=== PATIENT | female | born 1955 | race Caucasian/White ===

== ENCOUNTER → 2016-07-19 | Outpatient (CLI) | payer BC ==
[~2016-07-19] MED LIST: ALBUAER19 INH; IBUP-1277 PO; METR0.7536 TOP; NITR-5 PO; SULF47LI TOP
[2016-07-19 12:28] LABS: URINE APPEARANCE CLEAR (CLEAR); URINE BILIRUBIN NEG (NEG); URINE COLOR YELLOW; URINE EPITHELIAL CELL AUTO 20-30 /lpf (0-5); URINE NITRITE NEG (NEG); URINE SPECIFIC GRAVITY 1.009 (1.000-1.030); UROBILINOGEN NEG (NEG)
[2016-07-19 12:42] LABS: MANUAL MICROSCOPIC REQUIRED? NO; REVIEW REQ? YES
== END | disposition home or self-care (01) ==
LOC: C.LABBFT 08:54
PROVIDERS: ATTEND Internal Medicine
DX: N39.0 Urinary tract infection, site not specified (principal)

== ENCOUNTER → 2016-12-04 | Outpatient (CLI) | payer BC ==
--- NOTE | 2016-12-05 07:39 | MAMMOGRAPHY REPORT ---
BILATERAL DIGITAL SCREENING MAMMOGRAM TOMOSYNTHESIS WITH CAD: 12/04/2016 CLINICAL HISTORY: Routine screening. Patient has no complaints. TECHNIQUE: Breast tomosynthesis in addition to standard 2D mammography was performed. Current study was also evaluated with a Computer Aided Detection (CAD) system. COMPARISON: Comparison is made to exams dated: 11/18/2015 mammogram, 11/16/2014 mammogram, 11/13/2013 m ammogram, 11/12/2012 mammogram, 11/12/2011 mammogram, and 11/08/2010 mammogram - [facility] enter. BREAST COMPOSITION: There are scattered areas of fibroglandular density in both breasts. FINDINGS: There is stable asymmetry in the anterior left breast. No new suspicious mass, architectu ral distortion or cluster of microcalcifications is seen. IMPRESSION: ACR BI-RADS CATEGORY 1: NEGATIVE There is no mammographic evidence of malignancy. A 1 year screening mammogram is recommended. The pa tient will receive written notification of the results. Approximately 10% of breast cancers are not detected with mammography. A negative mammographic report should not delay biopsy if a clinically suggestive mass is present. Elle Smart M.D. ay/:12/04/2016 16:50:56 Exhauster Engineer: Rosa Isela PARSONS(Víctor)(M), [facility] letter sent: Normal 1/2 BI-RADS Code: ACR BI-RADS Category 1: Negative
== END | disposition home or self-care (01) ==
LOC: C.MAMM 15:35
PROVIDERS: ATTEND Obstetrics & Gynecology
DX: Z12.31 Encounter for screening mammogram for malignant neoplasm of breast (principal)

== ENCOUNTER → 2016-12-20 | Outpatient (CLI) | payer BC ==
--- NOTE | 2016-12-20 14:23 | DIAGNOSTIC IMAGING REPORT ---
LEFT KNEE 3 VIEWS CLINICAL HISTORY: Left knee pain. FINDINGS: AP, crosstable lateral, and sunrise views of left knee are compared to study dated 01/30/2013. The skeletal structures are osteopenic. No fracture is seen. There is minimal joint space narrowing seen at the patellofemoral articulation. No joint effusion is identified. The overlying soft tissues are within normal limits. IMPRESSION: No acute bony abnormality is seen in the left knee. Electronically signed by: Matt Saha M.D. 12/20/2016 2:22 PM Dictated Date/Time: 12/20/2016 2:21 PM
== END | disposition home or self-care (01) ==
LOC: C.RAD1850 13:33
PROVIDERS: ATTEND Internal Medicine
DX: M25.562 Pain in left knee (principal)

== ENCOUNTER → 2017-03-18 | Outpatient (CLI) | payer BC | END | disposition home or self-care (01) | LOC: C.PAPS 13:50 | PROVIDERS: ATTEND Obstetrics & Gynecology | DX: Z01.419 Encounter for gynecological examination (general) (routine) without abnormal findings (principal) ==

== ENCOUNTER → 2017-10-08 | Outpatient (CLI) | payer OTHER ==
[2017-10-08 12:50] LABS: BASO % 0.4 %; BASO ABS # 0.02 K/uL (0-0.2); EOS % 3.1 %; EOS ABS # 0.17 K/uL (0-0.5); HEMATOCRIT 37.2 % (37-47); HEMOGLOBIN 12.2 g/dL (12.0-16.0); LYMPH % 36.5 %; LYMPH ABS # 2.03 K/uL (1.2-3.4); MEAN CELL VOLUME 92.8 fL (80-100); MEAN CORPUSCULAR HEMOGLOBIN 30.4 pg (25-34); MEAN CORPUSCULAR HGB CONC 32.8 g/dl (32-36); MEAN PLATELET VOLUME 11.1 fL (7.4-10.4); MONO % 6.8 %; MONO ABS # 0.38 K/uL (0.11-0.59); NEUT % 53.2 %; NEUT ABS # 2.96 K/uL (1.4-6.5); PLATELET COUNT 242 K/uL (130-400); RED CELL DISTRIBUTION WIDTH CV 14.2 % (11.5-14.5); RED CELL DISTRIBUTION WIDTH SD 48.5 fL (36.4-46.3); WHITE BLOOD COUNT 5.56 K/uL (4.8-10.8)
[2017-10-08 15:20] LABS: BLOOD UREA NITROGEN 13 mg/dl (7-18); CALCIUM 8.7 mg/dl (8.5-10.1); CARBON DIOXIDE 30 mmol/L (21-32); CHOLESTEROL 167 mg/dl (0-200); CREATININE 0.68 mg/dl (0.60-1.20); GLUCOSE 87 mg/dl (70-99); POTASSIUM 4.2 mmol/L (3.5-5.1); SODIUM 140 mmol/L (136-145)
[2017-10-08 15:24] LABS: LDL CHOLESTEROL CALCULATED 80 mg/dl
== END | disposition home or self-care (01) ==
LOC: C.LABBFT 08:43
PROVIDERS: ATTEND Internal Medicine
DX: R73.9 Hyperglycemia, unspecified (principal)

== ENCOUNTER 2023-07-05 21:38 | Inpatient (IN) ==
--- NOTE | 2023-07-05 22:28 | Emergency Department Note ---
Impression & Plan Perforation of sigmoid colon due to diverticulitis ED Provider Note NAME: JANICE KUHN AGE: 67 SEX: F : 1955 ARRIVES VIA: Walk-In INFORMANT: Patient, ED PROVIDER(S): Wilfrido Bolden MD CHIEF COMPLAINT: Colitis with perforation HPI: This is a 67-year-old female presenting for abdominal pain. Patient states that she has had previous diverticulitis. She notes that yesterday she eating a high-fiber diet when she had some significant abdominal pain in her lower quadrants. She has felt somewhat similar to diverticulitis. Patient took an Augmentin today. She then called her primary care physician who is able to get her in scheduling outpatient CT scan. The CT scan did reveal a circumferential area of thickening consistent with colitis with possible perforation versus abscess. She was sent in emergently by her PCP. At this time patient now she has minimal pain between a 2 and a 3 currently. She notes she is n.p.o. ROS: See above HPI for pertinent positives & negatives. A total of 10 systems reviewed and were otherwise negative. PAST MEDICAL HISTORY: See Below PAST SURGICAL HISTORY: See Below FAMILY HISTORY: See Below SOCIAL HISTORY: See Below HOME MEDICATIONS: See Below ALLERGIES: See Below VITALS: See Below PHYSICAL EXAMINATION: General: resting comfortably in no acute distress Head: Normocephalic and atraumatic Eyes: Normal inspection, extraocular muscles intact Ear, nose, throat: Normal external exam Neck: Normal range of motion Respiratory: lungs clear to auscultation bilaterally Cardiovascular: Regular rate/rhythm, no murmur GI: Soft, no rebound or guarding, not significantly tender Extremities: nontender, moves all extremities Neuro: The patient awake and alert, appropriately conversive, no focal deficits, symmetric faces Skin: Warm, dry, and intact MEDICAL DECISION MAKING: This is a 67-year-old female presenting for abdominal pain. Patient does have CT scan from earlier today showing circumferential colitis around the cecum with concern for perforation versus abscess. Upon patient arrival, I examined her with a nontender belly patient is borderline febrile to 37.8. Antibiotics were ordered as well as stat call to general surgery. General surgery, Dr. Lang, recommends continued IV antibiotics as well as admission to medicine with surgical consult. - does reveal a leukocytosis up to 16 otherwise no significant electrolyte abnormalities. Lactate was not elevated. -Patient admitted under Dr. Cardenas -Patient's son, critical care Danae, had some questions about patient's care. Able to answer questions and we both reviewed the CAT scan together. Differential diagnosis: Diverticulitis, perforation, abscess, sepsis ER treatment provided: See below Diagnostics interpreted by me: ECG: None Cardiac Monitoring: An order was placed for continuous cardiac monitoring. The monitor shows a rate of 90 with sinus rhythm Laboratory studies: As stated above and show below. Imaging studies: See below. 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 History of tooth extraction History of tonsillectomy History of section X2 History of colonoscopy Family History Son No problems noted. Father Lung cancer Mother Afib Denies family history of Ovarian cancer Prostate cancer Family history of diabetes mellitus Myocardial infarction Breast cancer Colorectal cancer Social History Smoking Status: Never smoker Second Hand Exposure: No; Do You Dip or Chew Tobacco: No; Hx Alcohol Use: Yes Alcohol type: beer Alcohol Intake Frequency: 2-4 x/Month Alcohol Intake Frequency Comment: goes out once per week Hx Substance Use: No Preferred Language: Malay Communication Ability: Effective Visual Impairment: No Limitations Hearing Ability: Normal Laborer Mine Required: No Beliefs That Will Affect Care: None marital status: single Current Living Situation: Alone current occupational status: retired 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 Other Information That Helps Us Care for You: No Feels Safe at Home: Yes Safety Concerns: Feels Safe At This Time Childhood Exposure to Second-Hand Smoke: Yes Diet: other Diet Comment: weight management Dr. Ramachandran caffeine: Yes Dental Care, Regularly: Yes Physical Activity Frequency: 5-6 Times per Week Seatbelt Use: always Sunscreen Use: Yes Assistive Devices: Glasses Allergies Allergies Allergy/AdvReac Type Severity Reaction Status Date / Time Cipro Allergy Severe DIZZINESS Unverified 12/18/15 17:14 cat dander Allergy Unknown ASTHMA SX Verified 07/06/23 00:45 dog dander Allergy Unknown ASTHMA SX Verified 07/06/23 00:45 ciprofloxacin AdvReac Severe DIZZINESS Verified 07/06/23 00:45 metronidazole AdvReac Severe DIZZINESS Verified 07/06/23 00:45 Home Meds Home Medications Medication Instructions Recorded Confirmed cholecalciferol (vitamin D3) 25 1,000 unit PO DAILY 05/12/18 07/06/23 mcg (1,000 unit) capsule (Vitamin D3) multivitamin (Daily Multi-Vitamin 1 tab PO DAILY 06/05/23 07/06/23 tablet) Lactobacillus rhamnosus GG 10 1 cap PO DAILY 07/06/23 07/06/23 billion cell capsule (Culturelle) ibuprofen 200 mg tablet 400 - 600 mg PO Q6H PRN Pain 07/06/23 07/06/23 Previous Rx's Medication Instructions Recorded albuterol sulfate 90 mcg/actuation 2 puff inhalation QID PRN asthma 10/05/22 aerosol inhaler (ProAir HFA) #3 Inhalers cyclobenzaprine 10 mg tablet 10 mg PO HS PRN muscle spasm #30 01/31/23 tabs amoxicillin 875 mg-potassium 1 tab PO BID #20 tabs 07/05/23 clavulanate 125 mg tablet Results & Data (ED) Vital Signs Vital Signs - 24 hr 07/05/23 21:43 07/05/23 22:45 07/05/23 22:56 Temperature 37.8 C H Temperature Source Temporal Artery Scan Oral Pulse Rate 97 H 85 Pulse Rate [Apical] 89 Pulse Rate from SpO2 Sensor Respiratory Rate 18 18 Respiratory Effort / Characteristics Non-Labored Spontaneous Non-Labored Spontaneous Respiratory Depth Normal Normal Respiratory Pattern Regular Regular Blood Pressure 148/73 H Blood Pressure [Right Arm] 131/65 Blood Pressure Mean 98 Blood Pressure Mean [Right Arm] 87 Blood Pressure Position Sitting Pulse Oximetry 97 97 Oxygen Delivery Method Room Air Room Air Sepsis Recent Fever Within 48 Hours No Sepsis New/Unexplained Change in Mental Status N/A Sepsis Action Taken by Nursing No Action Required 07/05/23 23:00 Temperature Temperature Source Pulse Rate 87 Pulse Rate [Apical] Pulse Rate from SpO2 Sensor 87 Respiratory Rate 21 Respiratory Effort / Characteristics Respiratory Depth Respiratory Pattern Blood Pressure 132/60 Blood Pressure [Right Arm] Blood Pressure Mean 84 Blood Pressure Mean [Right Arm] Blood Pressure Position Pulse Oximetry 95 Oxygen Delivery Method Room Air Sepsis Recent Fever Within 48 Hours Sepsis New/Unexplained Change in Mental Status Sepsis Action Taken by Nursing Laboratory Data 07/06/23 04:07 07/06/23 04:07 Lab Results 07/05/23 Range/Units 21:54 WBC 16.45 H (4.8-10.8) K/ul RBC 4.18 L (4.20-5.40) M/uL Hgb 12.7 (12.0-16.0) g/dl Hct 38.5 (37.0-47.0) % MCV 92.1 (80.0-100.0) fL MCH 30.4 (25.0-34.0) pg MCHC 33.0 (32.0-36.0) g/dL RDW Std Deviation 42.7 (36.4-46.3) fL RDW Coeff of Nithin 12.7 (11.5-14.5) % Plt Count 236 (130-400) K/uL MPV 11.5 (9.4-12.4) fL Immature Gran % (Auto) 0.7 % Neut % (Auto) 78.7 % Lymph % (Auto) 13.7 % Dewey % (Auto) 6.2 % Eos % (Auto) 0.3 % Baso % (Auto) 0.4 % Neut # (Auto) 12.96 H (1.40-6.50) K/uL Lymph # (Auto) 2.25 (1.20-3.40) K/uL Dewey # (Auto) 1.02 H (0.11-0.59) K/uL Eos # (Auto) 0.05 (0.00-0.50) K/uL Baso # (Auto) 0.06 (0.00-0.20) K/uL Immature Gran # (Auto) 0.11 (0.01-0.20) K/uL Sodium 135 L (136-145) mmol/L Potassium 3.6 (3.5-5.1) mmol/L Chloride 100 (98-107) mmol/L Carbon Dioxide 26 (21-32) mmol/L Anion Gap 9 (3-11) BUN 11 (6-23) mg/dl Creatinine 0.74 (0.6-1.2) mg/dl Est Cr Clr Drug Dosing 74.1 ml/min Est GFR ( Amer) 96.5 ml/min Est GFR (Non-Af Amer) 83.2 ml/min BUN/Creatinine Ratio 14.9 (10-20) Glucose 126 H (70-99(Fasting)) mg/dl Calcium 9.1 (8.6-10.3) mg/dl Total Bilirubin 1.0 (0.2-1.0) mg/dl AST 18 (13-39) U/L ALT 17 (7-52) U/L Alkaline Phosphatase 92 (34-104) U/L Total Protein 7.7 (6.0-8.3) gm/dl Albumin 4.6 (3.4-5.0) gm/dl Globulin 3.1 (2.5-4.0) gm/dl Albumin/Globulin Ratio 1.5 (0.9-2) Lipase 5 L (11-82) U/L Administered Medications Piperacillin Sod/Tazobactam (Sod 4.5 gm/ Dextrose) 100 mls @ 25 mls/hr IV Q8H [facility]; Protocol Stop: 07/16/23 05:59 Last Infusion: 07/06/23 10:19 Dose: Infused Documented By: Admin: 07/06/23 06:05 Dose: 25 mls/hr Documented By: IMANI Pantoprazole Sodium 40 mg/ (Syringe) 10 mls @ 5 mls/min IV DAILY@1100 SAMY Stop: 08/05/23 10:59 Last Admin: 07/06/23 10:24 Dose: 5 mls/min Documented By: ELIS Discontinued Medications Piperacillin Sod/Tazobactam Sod (Zosyn) 4.5 gm in 100 mls @ 200 mls/hr IV NOW ONE Stop: 07/05/23 22:38 Last Infusion: 07/06/23 02:32 Dose: Infused Documented By: Admin: 07/05/23 22:35 Dose: 200 mls/hr Documented By: JADEN Discharge Plan Visit Data Chief Complaint: Abnormal Labs/Diagnostic Testing Stated Complaint: ABNORMAL CT ED Provider: Wilfrido Bolden Discharge Problem: Perforation of sigmoid colon due to diverticulitis Patient Disposition: Admitted As Inpatient Discharge Instructions Interventions: ED Discharge Assessment Last Done: 07/06/23 01:38
[2023-07-05 22:29] LABS: Basophils # (auto) 0.06 K/uL (0.00-0.20); Basophils % (auto) 0.4 %; Eosinophils # (auto) 0.05 K/uL (0.00-0.50); Eosinophils % (auto) 0.3 %; Hematocrit (blood only) 38.5 % (37.0-47.0); Hemoglobin 12.7 g/dl (12.0-16.0); Immature Granulocytes # (auto) 0.11 K/uL (0.01-0.20); Immature Granulocytes % (auto) 0.7 %; Lymphocytes # (auto) 2.25 K/uL (1.20-3.40); Lymphocytes % (auto) 13.7 %; Mean Corpuscular Hemoglobin 30.4 pg (25.0-34.0); Mean Corpuscular Volume 92.1 fL (80.0-100.0); Mean Platelet Volume 11.5 fL (9.4-12.4); Monocytes # (auto) 1.02 K/uL (0.11-0.59); Monocytes % (auto) 6.2 %; Neutrophils # (auto) 12.96 K/uL (1.40-6.50); Neutrophils % (auto) 78.7 %; Platelet Count 236 K/uL (130-400); RDW Coefficient of Variation 12.7 % (11.5-14.5); RDW Standard Deviation 42.7 fL (36.4-46.3); Red Blood Count 4.18 M/uL (4.20-5.40); White Blood Count 16.45 K/ul (4.8-10.8)
[2023-07-05 22:31] LABS: Albumin Globulin Ratio 1.5 (0.9-2); Albumin Level 4.6 gm/dl (3.4-5.0); BUN Creatinine Ratio 14.9 (10-20); Calcium 9.1 mg/dl (8.6-10.3); Creatinine Clr Calc Pharmacy 74.1 ml/min; Est GFR (African American) 96.5 ml/min; Est GFR (Non-African American) 83.2 ml/min; Globulin 3.1 gm/dl (2.5-4.0); Potassium 3.6 mmol/L (3.5-5.1); Total Protein 7.7 gm/dl (6.0-8.3)
[2023-07-05] MEDS: PIPERACILLIN/TAZOBACTAM 4.5 GM/100 ML BAG IV ONE (22:35)
--- NOTE | 2023-07-05 22:43 | History & Physical Report ---
Date of Service July 05, 2023 Assessment & Plan (1) Colitis: Plan: Pt is a 67 yo female with PMH of rosacea, asthma, and diverticulitis (last episode 10 yrs ago) presenting to the ER after she was told there was concern for bowel perforation on an outpatient CT scan. Colitis w/ extraluminal air - pt hemodynamically stable; SIRS neg - leukocytosis to 16.45 with left shift, Hgb stable, BMP WNL - CTAP showed circumferential thickening of sigmoid colon consistent with colitis; also revealed small focus of extraluminal air (12x16 mm)- possible developing abscess - will keep pt NPO; continue zosyn for ABX coverage; tylenol for pain control - general surgery consulted Diet: NPO VTE ppx: deferred as pt low risk Code: full Dispo: med/tele (2) Diverticulosis: History of Present Illness Chief Complaint: concern for bowel perf Primary Care Provider: Vinicio Garcia MD Pt is a 67 yo female with PMH of rosacea, asthma, and diverticulitis (last episode 10 yrs ago) presenting to the ER after she was told there was concern for bowel perforation on an outpatient CT scan. Pt explains that she developed sudden onset, severe stomach pain yesterday. She had broccoli and eggs for breakfast and a large salad for lunch- the pain started in the afternoon. She had chills throughout last night. She has a previous hx of diverticulitis and thought this may be occurring again so she put herself on a liquid diet today. This improved her pain. She scheduled an appt with her PCP today who ordered a CT scan for evaluation in addition to augmentin. The CT scan showed signs of extraluminal air and her PCP emergently referred her to the ER. She did take 1 augmentin dose this evening. Pt denies fevers, N/V, and bloody BM. Pt is due for screening colonoscopy September 2023. Last colonoscopy in 2013- negative. In the ER, pt was hemodynamically stable. She complained of mild pain, much improved from yesterday. The pt was given zosyn x1. Allergies Allergy/AdvReac Type Severity Reaction Status Date / Time Cipro Allergy Severe DIZZINESS Unverified 12/18/15 17:14 cat dander Allergy Unknown ASTHMA SX Verified 07/06/23 00:45 dog dander Allergy Unknown ASTHMA SX Verified 07/06/23 00:45 ciprofloxacin AdvReac Severe DIZZINESS Verified 07/06/23 00:45 metronidazole AdvReac Severe DIZZINESS Verified 07/06/23 00:45 Home Medications Medication Instructions Recorded Confirmed Type cholecalciferol (vitamin D3) 25 1,000 unit PO DAILY 05/12/18 07/06/23 History mcg (1,000 unit) capsule (Vitamin D3) albuterol sulfate 90 mcg/actuation 2 puff inhalation QID PRN asthma 10/05/22 07/06/23 Rx aerosol inhaler (ProAir HFA) #3 Inhalers cyclobenzaprine 10 mg tablet 10 mg PO HS PRN muscle spasm #30 01/31/23 07/06/23 Rx tabs multivitamin (Daily Multi-Vitamin 1 tab PO DAILY 06/05/23 07/06/23 History tablet) amoxicillin 875 mg-potassium 1 tab PO BID #20 tabs 07/05/23 07/06/23 Rx clavulanate 125 mg tablet Lactobacillus rhamnosus GG 10 1 cap PO DAILY 07/06/23 07/06/23 History billion cell capsule (Culturelle) ibuprofen 200 mg tablet 400 - 600 mg PO Q6H PRN Pain 07/06/23 07/06/23 History Past Med/Surg History Medical History (Updated 07/06/23 @ 12:30 by Wilfrido Bolden MD) 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 History of tooth extraction History of tonsillectomy History of section X2 History of colonoscopy Family History Son No problems noted. Father Lung cancer Mother Afib Denies family history of Ovarian cancer Prostate cancer Family history of diabetes mellitus Myocardial infarction Breast cancer Colorectal cancer Social History Smoking Status: Never smoker Second Hand Exposure: No; Do You Dip or Chew Tobacco: No; Hx Alcohol Use: Yes Alcohol type: beer Alcohol Intake Frequency: 2-4 x/Month Alcohol Intake Frequency Comment: goes out once per week Hx Substance Use: No Preferred Language: Greek Communication Ability: Effective Visual Impairment: No Limitations Hearing Ability: Normal Hosting Engineer Required: No Beliefs That Will Affect Care: None marital status: single Current Living Situation: Alone current occupational status: retired 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 Other Information That Helps Us Care for You: No Feels Safe at Home: Yes Safety Concerns: Feels Safe At This Time Childhood Exposure to Second-Hand Smoke: Yes Diet: other Diet Comment: weight management Dr. Ramachandran caffeine: Yes Dental Care, Regularly: Yes Physical Activity Frequency: 5-6 Times per Week Seatbelt Use: always Sunscreen Use: Yes Assistive Devices: Glasses Review of Systems Review of Systems: As per HPI Physical Exam Physical Exam: Constitutional: well appearing, no acute distress HEENT: normocephalic, no conjunctival injection CV: RRR, no murmur, no LE edema Respiratory: CTA bilaterally. No rhonchi, wheezes, or crackles. No increased work of breathing GI: soft, nondistended, nontender, + bowel sounds MSK: no gross deformities noted Skin: warm, dry, no rashes Neuro: alert, oriented, no FND noted Psych: mood and affect congruent Results & Data Results & Data Vital Signs (Past 12 Hours) Vital Signs Temp Pulse Resp BP Pulse Ox O2 Del Method 07/05/23 21:43 37.8 C H 97 H 18 148/73 H 97 Room Air Supervising Physician Co-Signing Physician Notes Attending addendum: I have physically seen this patient, have supervised the medical residents activities, and agree with the H&P unless as otherwise noted. Assessment and Plan: Sigmoid colitis with microperforation/localized developing abscess- Patient is hemodynamically stable NPO WBC 16.45 with left shift Zosyn 4.5 g IV every 8 hours Pantoprazole 40 mg IV daily Zofran 4 mg IV every 6 hours as needed Acetaminophen 1 g IV every 8 hours as needed for mild pain or fever IV fluids as noted General surgery has been consulted and is aware the patient Resident Activity Tracking Resident Involvement: Resident Care Provided Care Provided: Adult Hospital Medicine
[2023-07-05] MEDS ORDERED: MELATONIN 3 MG TAB PO PRN (23:30)
[2023-07-05] MEDS ORDERED: ONDANSETRON INJ 2 MG/ML 2 ML VIAL IV PRN (23:30)
[2023-07-05] MEDS ORDERED: ACETAMINOPHEN 325 MG TAB PO PRN (23:30)
[2023-07-06 00:47] LABS: Appearance Urine Clear (Clear); Bacteria Urine Automated Negative (Negative); Bilirubin Urine Negative (Negative); Blood Urine Trace (Negative); Cast Urine Automated 0 /lpf (0-5); Color Urine Yellow; Glucose Urine UA Negative (Negative); Ketones Urine Trace (Negative); Leukocyte Esterase Urine 2+ (Negative); Nitrite Urine Negative (Negative); Protein Urine Negative (Negative); RBC Urine Automated 0-4 /hpf (0-4); Specific Gravity Urine 1.028 (1.000-1.030); Urobilinogen Urine Negative (Negative); pH Urine 6.5 (4.5-7.5)
[2023-07-06] MEDS ORDERED: ALBUTEROL HFA 8 GM INHALER INH PRN (01:37)
[2023-07-06 05:04] LABS: Hematocrit (blood only) 33.9 % (37.0-47.0); Hemoglobin 11.7 g/dl (12.0-16.0); Mean Corpuscular Hgb Conc 34.5 g/dL (32.0-36.0); Mean Corpuscular Volume 89.9 fL (80.0-100.0); Mean Platelet Volume 11.7 fL (9.4-12.4); Platelet Count 210 K/uL (130-400); RDW Coefficient of Variation 12.7 % (11.5-14.5); RDW Standard Deviation 41.5 fL (36.4-46.3); Red Blood Count 3.77 M/uL (4.20-5.40); White Blood Count 15.66 K/ul (4.8-10.8)
[2023-07-06 05:16] LABS: BUN Creatinine Ratio 17.5 (10-20); Calcium 8.9 mg/dl (8.6-10.3); Creatinine Clr Calc Pharmacy 96.2 ml/min; Est GFR (African American) 110.4 ml/min; Est GFR (Non-African American) 95.3 ml/min; Potassium 3.8 mmol/L (3.5-5.1)
[2023-07-06] MEDS: PIPERACILLIN/TAZOBACTAM 4.5 GM in DEXTROSE 5% MINI-B 100 ML IV SCH (06:05)
[2023-07-06] MEDS ORDERED: ACETAMINOPHEN 1,000 MG/100 ML VIAL IV PRN (06:52)
--- NOTE | 2023-07-06 07:46 | Hospitalist Progress Note ---
Date of Service July 06, 2023 Assessment & Plan (1) Colitis: Plan: Pt is a 67 yo female with PMH of rosacea, asthma, and diverticulitis (last episode 10 yrs ago) presenting to the ER after she was told there was concern for bowel perforation on an outpatient CT scan. Colitis w/ extraluminal air: - pt hemodynamically stable; SIRS neg - leukocytosis to 16.45 with left shift, Hgb stable, BMP WNL - CTAP showed circumferential thickening of sigmoid colon consistent with colitis; also revealed small focus of extraluminal air (12x16 mm)- possible developing abscess - will keep pt NPO; continue zosyn for abx coverage; tylenol for pain control - general surgery consulted, conservative management for now, continue NPO and IV abx. Diet: NPO VTE ppx: deferred as pt low risk Code: full Dispo: med/tele (2) Diverticulosis: Admission and Anticipated Discharge Date Admission Date: July 05, 2023 Supervising Physician Co-Signing Physician Notes Attending Physician Supervision Note: I independently interviewed and examined the patient and verified the hammond history and physical, reviewed labs and image studies and agree with findings and care plan noted above. Subjective Patient doing well this morning without overnight events. She states the pain is very mild and was mild when she came in. She is not having any nausea or vomiting, fevers, chills. Review of Systems Review of Systems: As per HPI Physical Exam Constitutional: WD/WN, vitals as above Eyes: PERRL, conjunctivae normal, anicteric sclerae Respiratory: normal respiratory effort, lungs clear to auscultation Cardiovascular: RRR, no murmur, no edema Gastrointestinal (Abdomen): BS+, mild discomfort elicited with palpation at the lower quadrants, soft, non distended. Skin: no rashes, warm and dry Psychiatric: A+Ox3, euthymic affect Results & Data Results & Data Vital Signs (Past 12 Hours) Vital Signs Temp Pulse Pulse Pulse Resp BP BP 07/06/23 07:00 78 07/06/23 05:13 07/06/23 04:43 37.0 C 89 18 125/64 07/06/23 03:00 73 18 133/66 07/06/23 02:30 77 16 07/06/23 02:00 78 23 130/64 07/06/23 01:00 90 18 118/79 07/06/23 00:00 89 22 144/68 H 07/05/23 23:00 87 21 132/60 07/05/23 22:56 85 07/05/23 22:45 89 18 131/65 07/05/23 21:43 37.8 C H 97 H 18 148/73 H Pulse Ox O2 Del Method 07/06/23 07:00 07/06/23 05:13 Room Air 07/06/23 04:43 96 Room Air 07/06/23 03:00 95 Room Air 07/06/23 02:30 94 07/06/23 02:00 92 Room Air 07/06/23 01:00 95 Room Air 07/06/23 00:00 94 Room Air 07/05/23 23:00 95 Room Air 07/05/23 22:56 07/05/23 22:45 97 Room Air 07/05/23 21:43 97 Room Air Resident Activity Tracking Resident Involvement: Resident Care Provided Care Provided: Adult Hospital Medicine
[2023-07-06] MEDS: PANTOprazole 40 MG in SYRINGE 0 ML IV SCH (10:24)
--- NOTE | 2023-07-06 11:47 | Surgery Consultation ---
Date of Consultation July 06, 2023 Assessment & Plan (1) Perforation of sigmoid colon due to diverticulitis: No acute indication for surgical intervention She may have some sips and chips but otherwise n.p.o. Continue IV antibiotics I will continue to follow along closely History of Present Illness Attending Physician: Christina Hinkle MD History of Present Illness Patient is a very pleasant 59-year-old female who presents since childhood. She has had a history of diverticulitis 1 time prior 11 years ago. Couple days ago she began having abdominal pain which reminded her of her prior diverticulitis. Here in the hospital she was sigmoid diverticulitis with microperforation. Currently she is feeling well. She relates a 1 out of 10 discomfort. Allergies Allergy/AdvReac Type Severity Reaction Status Date / Time Cipro Allergy Severe DIZZINESS Unverified 12/18/15 17:14 cat dander Allergy Unknown ASTHMA SX Verified 07/06/23 00:45 dog dander Allergy Unknown ASTHMA SX Verified 07/06/23 00:45 ciprofloxacin AdvReac Severe DIZZINESS Verified 07/06/23 00:45 metronidazole AdvReac Severe DIZZINESS Verified 07/06/23 00:45 Home Medications Medication Instructions Recorded Confirmed Type cholecalciferol (vitamin D3) 25 1,000 unit PO DAILY 05/12/18 07/06/23 History mcg (1,000 unit) capsule (Vitamin D3) albuterol sulfate 90 mcg/actuation 2 puff inhalation QID PRN asthma 10/05/22 07/06/23 Rx aerosol inhaler (ProAir HFA) #3 Inhalers cyclobenzaprine 10 mg tablet 10 mg PO HS PRN muscle spasm #30 01/31/23 07/06/23 Rx tabs multivitamin (Daily Multi-Vitamin 1 tab PO DAILY 06/05/23 07/06/23 History tablet) amoxicillin 875 mg-potassium 1 tab PO BID #20 tabs 07/05/23 07/06/23 Rx clavulanate 125 mg tablet Lactobacillus rhamnosus GG 10 1 cap PO DAILY 07/06/23 07/06/23 History billion cell capsule (Culturelle) ibuprofen 200 mg tablet 400 - 600 mg PO Q6H PRN Pain 07/06/23 07/06/23 History Patient History Medical History (Updated 07/06/23 @ 11:46 by Hernan Lang DO) 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 History of tooth extraction History of tonsillectomy History of section X2 History of colonoscopy Family History Son No problems noted. Father Lung cancer Mother Afib Denies family history of Ovarian cancer Prostate cancer Family history of diabetes mellitus Myocardial infarction Breast cancer Colorectal cancer Social History Smoking Status: Never smoker Second Hand Exposure: No; Do You Dip or Chew Tobacco: No; Hx Alcohol Use: Yes Alcohol type: beer Alcohol Intake Frequency: 2-4 x/Month Alcohol Intake Frequency Comment: goes out once per week Hx Substance Use: No Preferred Language: [place] Communication Ability: Effective Visual Impairment: No Limitations Hearing Ability: Normal Medical Anthropologist Required: No Beliefs That Will Affect Care: None marital status: single Current Living Situation: Alone current occupational status: retired current occupation: used to work in [employer] Working in [employer] parttime. Other Information That Helps Us Care for You: No Feels Safe at Home: Yes Safety Concerns: Feels Safe At This Time Childhood Exposure to Second-Hand Smoke: Yes Diet: other Diet Comment: weight management Dr. Ramachandran caffeine: Yes Dental Care, Regularly: Yes Physical Activity Frequency: 5-6 Times per Week Seatbelt Use: always Sunscreen Use: Yes Assistive Devices: Glasses Physical Exam Constitutional: WD/WN, vitals as above no acute distress and not ill appearing Eyes: PERRL, conjunctivae normal, anicteric sclerae EOM intact bilaterally ENMT: external ear and nose normal, oropharynx normal Ears: no hearing impairment Neck: trachea midline, no thyromegaly Respiratory: normal respiratory effort; no respiratory distress and does not use accessory muscles Cardiovascular: Rate/Rhythm: regular rate and regular rhythm Gastrointestinal (Abdomen): Soft. Very minimal suprapubic tenderness. No peritoneal signs. Skin: no rashes, warm and dry Psychiatric: Orientation: alert, oriented x 3 and cooperative Results & Data Vital Signs (Past 12 Hours) Vital Signs Temp Pulse Pulse Resp BP BP Pulse Ox 07/06/23 07:58 37.2 C 79 16 115/61 96 07/06/23 07:00 78 07/06/23 05:13 07/06/23 04:43 37.0 C 89 18 125/64 96 07/06/23 03:00 73 18 133/66 95 07/06/23 02:30 77 16 94 07/06/23 02:00 78 23 130/64 92 07/06/23 01:00 90 18 118/79 95 07/06/23 00:00 89 22 144/68 H 94 O2 Del Method 07/06/23 07:58 Room Air 07/06/23 07:00 07/06/23 05:13 Room Air 07/06/23 04:43 Room Air 07/06/23 03:00 Room Air 07/06/23 02:30 07/06/23 02:00 Room Air 07/06/23 01:00 Room Air 07/06/23 00:00 Room Air PG Care Time/CCT Total # of Minutes Spent Total Time Spent with Patient: Total time spent is greater than 50% in coordination of care (as documented) at patient's floor/unit and/or counseling patient: Coding Level of Care Code 20274 IN/OBS CONSULT LVL 3,45M Diagnoses Perforation of sigmoid colon due to diverticulitis K57.20
--- NOTE | 2023-07-06 19:44 | Billing Data ---
Date of Service July 06, 2023 Coding Level of Care Code 03872 INT INP/OBS CARE
[2023-07-06] MEDS: MELATONIN 3 MG TAB PO PRN (22:52)
[2023-07-07 06:29] LABS: Hematocrit (blood only) 36.8 % (37.0-47.0); Hemoglobin 11.8 g/dl (12.0-16.0); Mean Corpuscular Hgb Conc 32.1 g/dL (32.0-36.0); Mean Corpuscular Volume 93.6 fL (80.0-100.0); Mean Platelet Volume 11.3 fL (9.4-12.4); Platelet Count 236 K/uL (130-400); RDW Coefficient of Variation 12.7 % (11.5-14.5); RDW Standard Deviation 43.7 fL (36.4-46.3); Red Blood Count 3.93 M/uL (4.20-5.40); White Blood Count 13.43 K/ul (4.8-10.8)
--- NOTE | 2023-07-07 06:34 | Hospitalist Progress Note ---
Date of Service July 07, 2023 Assessment & Plan (1) Colitis: Plan: Pt is a 67 yo female with PMH of rosacea, asthma, and diverticulitis (last episode 10 yrs ago) presenting to the ER after she was told there was concern for bowel perforation on an outpatient CT scan. Colitis w/ extraluminal air: - pt hemodynamically stable; SIRS neg - leukocytosis trending down, Hgb stable, BMP WNL - CTAP showed circumferential thickening of sigmoid colon consistent with colitis; also revealed small focus of extraluminal air (12x16 mm)- possible developing abscess - Continue zosyn for abx coverage; tylenol for pain control - general surgery consulted - can advance to clears today with slow advance. Diet: Clear liquid VTE ppx: SCD, deferred chemoprophylaxis as pt low risk Code: full Dispo: med/tele (2) Diverticulosis: Admission and Anticipated Discharge Date Admission Date: July 05, 2023 Supervising Physician Co-Signing Physician Notes Attending Physician Supervision Note: I independently interviewed and examined the patient and verified the hammond history and physical, reviewed labs and image studies and agree with findings and care plan noted above. Subjective Patient doing well this morning, discomfort minimal, denies nausea, vomiting. No overnight events. Review of Systems Review of Systems: As per HPI Physical Exam Constitutional: WD/WN, vitals as above Eyes: PERRL, conjunctivae normal, anicteric sclerae Respiratory: normal respiratory effort, lungs clear to auscultation Cardiovascular: RRR, no murmur, no edema Gastrointestinal (Abdomen): BS+, mild discomfort with palpation at the lower quadrants, soft, nondistended. Skin: no rashes, warm and dry Psychiatric: A+Ox3, euthymic affect Results & Data Results & Data Vital Signs (Past 12 Hours) Vital Signs Temp Pulse Pulse Resp BP Pulse Ox O2 Del Method 07/07/23 04:38 36.9 C 83 20 120/64 95 Room Air 07/06/23 23:21 37.0 C 78 18 114/67 94 Room Air 07/06/23 21:57 83 07/06/23 19:53 37.0 C 76 18 125/69 96 Room Air Resident Activity Tracking Resident Involvement: Resident Care Provided Care Provided: Adult Hospital Medicine
[2023-07-07 06:45] LABS: BUN Creatinine Ratio 18.2 (10-20); Creatinine Clr Calc Pharmacy 70.6 ml/min; Est GFR (Non-African American) 79.3 ml/min; Potassium 3.5 mmol/L (3.5-5.1)
--- NOTE | 2023-07-07 11:31 | Surgery Progress Note ---
Date of Service July 07, 2023 Assessment & Plan (1) Perforation of sigmoid colon due to diverticulitis: Plan: Doing well. Will initiate clears. We can slowly advance over the next 24 hours.I am Hopeful we can get her discharged tomorrow Admission and Anticipated Discharge Date Admission Date: July 05, 2023 Subjective Patient continues to do well. She has minimal discomfort currently. Physical Exam Physical Exam: Alert no acute distress abd: soft. very mild LLQ ttp. Results & Data Vital Signs (Past 12 Hours) Vital Signs Temp Pulse Pulse Resp BP Pulse Ox O2 Del Method 07/07/23 08:04 36.9 C 78 16 107/52 L 93 Room Air 07/07/23 07:00 77 07/07/23 04:38 36.9 C 83 20 120/64 95 Room Air PG Care Time/CCT Total # of Minutes Spent Total Time Spent with Patient: Total time spent is greater than 50% in coordination of care (as documented) at patient's floor/unit and/or counseling patient: Coding Level of Care Code 25539 SUB INP/OBS CARE 2/35MIN Diagnoses Perforation of sigmoid colon due to diverticulitis K57.20
[2023-07-08 05:50] LABS: Hematocrit (blood only) 35.1 % (37.0-47.0); Hemoglobin 11.9 g/dl (12.0-16.0); Mean Corpuscular Hemoglobin 30.5 pg (25.0-34.0); Mean Corpuscular Hgb Conc 33.9 g/dL (32.0-36.0); Mean Platelet Volume 10.8 fL (9.4-12.4); Platelet Count 261 K/uL (130-400); RDW Coefficient of Variation 12.5 % (11.5-14.5); White Blood Count 10.86 K/ul (4.8-10.8)
[2023-07-08 06:07] LABS: BUN Creatinine Ratio 15.1 (10-20); Calcium 8.7 mg/dl (8.6-10.3); Creatinine Clr Calc Pharmacy 74.3 ml/min; Est GFR (African American) 98.1 ml/min; Est GFR (Non-African American) 84.6 ml/min; Potassium 3.5 mmol/L (3.5-5.1)
--- NOTE | 2023-07-08 10:12 | Hospitalist Progress Note ---
Date of Service July 08, 2023 Assessment & Plan (1) Colitis: Plan: Pt is a 67 y/o female with PMHx of rosacea, asthma, and diverticulitis (last episode 10 yrs ago) presented to the ED after outpatient CT showed bowel perforation now clinically improving with IV abx. Colitis w/ extraluminal air: CT with circumferential thickening of sigmoid colon consistent with colitis; also revealed small focus of extraluminal air (12x16 mm) - possible developing abscess. No signs of sepsis on admission. Clinically improving without surgical intervention. Abx: zosyn Surg on board - advancing to low fiber diet Diet: low fiber VTE ppx: SCD, deferred chemoprophylaxis as pt low risk Code: full Dispo: med/tele (2) Diverticulosis: Admission and Anticipated Discharge Date Admission Date: July 05, 2023 Subjective Patient doing well this AM. Tolerating CLD without issue. No fevers or chills. No CP or SOB. No nausea or vomiting. Is having diarrhea. Review of Systems 2 Review of Systems: As per HPI Physical Exam 2 Physical Exam: Gen: well appearing patient in NAD HEENT: AT NC MMM Resp: CTAB no wheezing no increased work of breathing CV: RRR no m/r/g no edema clinically well perfused Abd: soft, non-tender, non-distended MSK: no obvious deformities Skin: no rashes or bruising Neuro: alert and oriented Psych: appropriate mood and affect Results & Data Results & Data Vital Signs (Past 12 Hours) Vital Signs Temp Pulse Pulse Resp BP Pulse Ox O2 Del Method 07/08/23 07:33 37.1 C 77 14 124/75 94 Room Air 07/08/23 07:29 36.9 C 77 14 119/69 94 Room Air 07/08/23 05:57 74 07/08/23 04:41 37.3 C 78 16 105/61 94 Room Air 07/07/23 22:52 83 07/07/23 22:44 37.5 C 83 16 131/75 95 Room Air Laboratory Results 07/08/23 05:25 07/08/23 05:25
--- NOTE | 2023-07-08 10:41 | Surgery Progress Note ---
Date of Service July 08, 2023 Assessment & Plan (1) Perforation of sigmoid colon due to diverticulitis: Plan: Doing well. Will advance to low residue diet. Recommend discharge today. She should be on a low residue diet for 4 to 6 weeks. Admission and Anticipated Discharge Date Admission Date: July 05, 2023 Subjective Patient seen. Feeling very well. No new complaints. Essentially no pain today Physical Exam Physical Exam: Alert no acute distress Constitutional: WD/WN, vitals as above no acute distress and not ill appearing Eyes: PERRL, conjunctivae normal, anicteric sclerae EOM intact bilaterally ENMT: external ear and nose normal, oropharynx normal Ears: no hearing impairment Neck: trachea midline, no thyromegaly Respiratory: normal respiratory effort; no respiratory distress and does not use accessory muscles Cardiovascular: Rate/Rhythm: regular rate and regular rhythm Gastrointestinal (Abdomen): Soft. Nontender. Essentially benign exam Skin: no rashes, warm and dry Psychiatric: Orientation: alert, oriented x 3 and cooperative Results & Data Vital Signs (Past 12 Hours) Vital Signs Temp Pulse Pulse Resp BP Pulse Ox O2 Del Method 07/08/23 07:33 37.1 C 77 14 124/75 94 Room Air 07/08/23 07:29 36.9 C 77 14 119/69 94 Room Air 07/08/23 05:57 74 07/08/23 04:41 37.3 C 78 16 105/61 94 Room Air 07/07/23 22:52 83 07/07/23 22:44 37.5 C 83 16 131/75 95 Room Air PG Care Time/CCT Total # of Minutes Spent Total Time Spent with Patient: Total time spent is greater than 50% in coordination of care (as documented) at patient's floor/unit and/or counseling patient: Coding Level of Care Code 89119 SUB INP/OBS CARE Diagnoses Perforation of sigmoid colon due to diverticulitis K57.20
--- NOTE | 2023-07-08 14:08 | Discharge Summary ---
Date of Service July 08, 2023 Admission HPI Per Admitting Provider Pt is a 67 yo female with PMH of rosacea, asthma, and diverticulitis (last episode 10 yrs ago) presenting to the ER after she was told there was concern for bowel perforation on an outpatient CT scan. Pt explains that she developed sudden onset, severe stomach pain yesterday. She had broccoli and eggs for breakfast and a large salad for lunch- the pain started in the afternoon. She had chills throughout last night. She has a previous hx of diverticulitis and thought this may be occurring again so she put herself on a liquid diet today. This improved her pain. She scheduled an appt with her PCP today who ordered a CT scan for evaluation in addition to augmentin. The CT scan showed signs of extraluminal air and her PCP emergently referred her to the ER. She did take 1 augmentin dose this evening. Pt denies fevers, N/V, and bloody BM. Pt is due for screening colonoscopy September 2023. Last colonoscopy in 2013- negative. In the ER, pt was hemodynamically stable. She complained of mild pain, much improved from yesterday. The pt was given zosyn x1. Admission Exam Per Admitting Provider Constitutional: well appearing, no acute distress HEENT: normocephalic, no conjunctival injection CV: RRR, no murmur, no LE edema Respiratory: CTA bilaterally. No rhonchi, wheezes, or crackles. No increased work of breathing GI: soft, nondistended, nontender, + bowel sounds MSK: no gross deformities noted Skin: warm, dry, no rashes Neuro: alert, oriented, no FND noted Psych: mood and affect congruent Principal Diagnosis diverticulitis with microperforation and colitis Discharge Exam Gen: well appearing patient in NAD HEENT: AT NC MMM Resp: CTAB no wheezing no increased work of breathing CV: RRR no m/r/g no edema clinically well perfused Abd: soft, non-tender, non-distended MSK: no obvious deformities Skin: no rashes or bruising Neuro: alert and oriented Psych: appropriate mood and affect Discharge Data Allergies Allergy/AdvReac Type Severity Reaction Status Date / Time Cipro Allergy Severe DIZZINESS Unverified 12/18/15 17:14 cat dander Allergy Unknown ASTHMA SX Verified 07/06/23 00:45 dog dander Allergy Unknown ASTHMA SX Verified 07/06/23 00:45 ciprofloxacin AdvReac Severe DIZZINESS Verified 07/06/23 00:45 metronidazole AdvReac Severe DIZZINESS Verified 07/06/23 00:45 Consultations 07/05/23 23:15 ED Decision to Admit Stat 07/05/23 23:30 Consult General Surgery Routine Hospital Course (1) Colitis: Pt is a 67 y/o female with PMHx of rosacea, asthma, and diverticulitis (last episode 10 yrs ago) presented to the ED after outpatient CT showed bowel perforation now clinically improving with IV abx and bowel rest. Diverticulitis complicated by microperf and colitis CT with circumferential thickening of sigmoid colon consistent with colitis; also revealed small focus of extraluminal air (12x16 mm) - possible developing abscess. No signs of sepsis on admission. Clinically improving without surgical intervention. Tolerating PO. Stable for discharge on oral abx - Augmentin for a total of 14 days of treatment. Continue with low fiber diet for 4-6 weeks and f/u with general surgery in 4-6 weeks outpatient. (2) Diverticulosis: (3) Perforation of sigmoid colon due to diverticulitis: Total Time Total Time Spent Total Time Spent (In Minutes): Less than 30 Discharge Plan Discharge Items Patient Disposition: Home - Self-Care Reason For Visit: COLITIS, CONCERN FOR BOWEL PERF Discharge Diagnosis: diverticulitis with bowel perf Activity: Per Instructions section Non-emergency contact: Primary Care Provider Call non-emergency contact if: your pain is unusual for you and your temperature is above 101 Follow-up/Referrals: Vinicio Garcia MD [Primary Care Provider] - 07/12/23 7:30 am Hernan Lang DO [Surgeon] - (call office for a follow up in 4-6 weeks ) Diet: Low Fiber Diet Comment: low fiber for 4-6 weeks Addtl Attending Provider Instructions: You were admitted to the hospital for diverticulitis with subsequent colitis and microperforation. You were treated with bowel rest, IV fluids, and antibiotics. You did not require surgical intervention. We will continue with antibiotics for a total of 2 weeks, a low fiber diet for 4-6, and you will follow up with general surgery in 4-6 weeks, call to make that appointment. A discharge summary will be sent to your primary care physician to ensure continuity of care. Please bring this discharge summary with you to your next office appointment so that your provider can review it at that time. Follow-up appointments: Make a follow-up appointment with your PCP within the next week. Make a follow-up appointment with general surgery in 4-6 weeks. Medications: Your medication list has been reviewed and reconciled upon discharge to ensure accuracy and continuity of care. An updated list of all your medications is included with your hospital discharge paperwork. Please review this list closely, and make note of any changes. We sent a new script for a longer course of Augmentin for a total of 14 days to the [facility] in [place]. You'll take one tab every 12 hours. If you have any issues filling these prescriptions, please call [phone] and ask to leave a message for Dr. Fry. Take your medications as instructed; do not skip a dose of your medicines. Make sure all of your doctors know every medicine you are taking (including [id number] medicines, vitamins, and supplements). Call your primary care provider before taking any new medicines (including over- the-counter medicines, vitamins, and supplements), because some of these may interact with your current medications, or may make your symptoms worse. Tell your primary care provider if you cannot afford your medications. CONTACT YOUR PRIMARY CARE PROVIDER if you experience any of the following: nausea or vomiting worsening abdominal pain Difficulty following your treatment plan, or difficulty taking medications CALL 911 OR GO TO THE EMERGENCY DEPARTMENT if you experience any of the following: Sudden, severe abdominal pain or nausea/vomiting Severe chest pain, or chest pain that radiates (moves) to your jaw or arm Sudden, severe shortness of breath or difficulty breathing Thank you for allowing us to participate in your care Pending Studies at Discharge: No Stand-Alone Forms: My [employer], Smoking Cessation Medications and DC Order Prescriptions: New amoxicillin-pot clavulanate 875-125 mg tablet 1 tab PO BID Qty: 23 0RF Continued albuterol sulfate [ProAir HFA] 90 mcg/actuation HFA aerosol inhaler 2 puff INHALATION QID PRN (Reason: asthma) Qty: 3 3RF cyclobenzaprine 10 mg tablet 10 mg PO HS PRN (Reason: muscle spasm) Qty: 30 3RF multivitamin [Daily Multi-Vitamin] Tablet 1 tab PO DAILY cholecalciferol (vitamin D3) [Vitamin D3] 1,000 unit Capsule 1,000 unit PO DAILY ibuprofen 200 mg Tablet 400 - 600 mg PO Q6H PRN (Reason: Pain) Culturelle 10 billion cell Capsule 1 cap PO DAILY Discontinued amoxicillin-pot clavulanate 875-125 mg tablet 1 tab PO BID Qty: 20 0RF Discharge Orders: Discharge Order (Routine); Ordered 07/08/23 Ordered By: Madelyn Fry Admission Data Admit Date/Time: 07/05/23 23:31 Attending Provider: Han Chilel Admit Provider: Akila Ruelas Primary Care Provider: Vinicio Garcia Other Providers: Issa Joseph; Hernan Lang Other Interventions: Discharge Summary Assessment (RN) Last Done: 07/08/23 15:09 Supervising Physician Co-Signing Physician Notes I personally examined the patient and verified all hammond points of history and exam, discussed case, and agree with decision making with Dr Fry feeling better eating better would like to go home. Surgery input appreciated. Vitals noted, in general she is awake and alert pleasant no distress. HEENT normocephalic atraumatic mucous membranes moist. Breathing unlabored no accessory muscle use good effort. Skin shows no rashes no pallor or icterus. Neuro without focal deficits. Perforated diverticulitisstable for home, p.o. antibiotics. Surgery follow- up as an outpatient. Otherwise as above. Resident Activity Tracking Resident Involvement: Resident Care Provided Care Provided: Adult Hospital Medicine
--- NOTE | 2023-07-08 18:41 | Billing Data ---
Date of Service July 08, 2023 Coding Level of Care Code 56426 IN/OBS DISCH 30 MIN/LESS
== END 2023-07-08 18:19 | disposition home or self-care (01) | DRG 392 ==
LOC: ED 21:38 → SUATTDRO 23:31 → EDINP 23:31 → 2W 07-06 01:38